=== PATIENT | female | born 1955 | race American Indian/Alaskan Native ===

== ENCOUNTER 2019-01-08 11:25 | Emergency (ER) | payer MEDICARE ==
[2019-01-08 11:25] VITALS: BMI 29.0
[2019-01-08 11:33] VITALS: PULSE 93; TEMP 99.3
[2019-01-08] MEDS: Albuterol-Ipratrop 3 mg / 0.5 (3 ml) UD IH SCH ×2 (12:23→12:59)
[2019-01-08] MEDS ORDERED: Albuterol-Ipratrop 3 mg / 0.5 (3 ml) UD ONE (12:26)
--- NOTE | 2019-01-08 12:26 | C.PDOC ---
History Of Present Illness 63 y/o female presents to the ER complaining of productive cough with clear phlegm which has been present for the 3 weeks. Patient states that she has chest pain with cough. Denies having fever,chills, SOB, nausea, vomiting, and abdominal pain. Time Seen by Provider: 01/08/19 11:34 Chief Complaint (Nursing): Cough, Cold, Congestion History Per: Patient History/Exam Limitations: no limitations Onset/Duration Of Symptoms: Days Current Symptoms Are (Timing): Still Present Severity: Moderate Past Medical History Reviewed: Historical Data, Nursing Documentation, Vital Signs Vital Signs: Last Vital Signs Temp 99.3 F 01/08/19 11:29 Pulse 93 H 01/08/19 11:29 Resp 22 01/08/19 11:29 BP 158/68 H 01/08/19 11:29 Pulse Ox 100 01/08/19 11:29 - Medical History PMH: HTN, Hypercholesterolemia Denies: Chronic Kidney Disease Surgical History: Endoscopy - [facility] Procedures ENDOSC POLYPECTOMY OF LG INTEST (11/22/14) Family History: States: No Known Family Hx - Social History Hx Alcohol Use: Yes Hx Substance Use: No - Immunization History Hx Influenza Vaccination: No Hx Pneumococcal Vaccination: No Review Of Systems Except As Marked, All Systems Reviewed And Found Negative. Constitutional: Negative for: Fever, Chills Cardiovascular: Positive for: Chest Pain (chest pain with cough) Respiratory: Positive for: Cough. Negative for: Shortness of Breath Gastrointestinal: Negative for: Nausea, Vomiting Physical Exam - Physical Exam Appears: Non-toxic, No Acute Distress Skin: Normal Color, Warm, Dry, No Rash Head: Atraumatic, Normacephalic Eye(s): bilateral: Normal Inspection, PERRL, EOMI Ear(s): Bilateral: Normal Nose: Normal Oral Mucosa: Moist Throat: Normal, No Erythema, No Exudate Neck: Normal ROM, Supple Chest: Symmetrical Cardiovascular: Rhythm Regular, No Friction Rub, No Murmur Respiratory: No Rales, Rhonchi (scattered rhonchi), No Wheezing Gastrointestinal/Abdominal: Bowel Sounds (active), Soft, No Tenderness Back: Normal Inspection, No CVA Tenderness Extremity: Normal ROM, No Tenderness, No Swelling Neurological/Psych: Oriented x3, Normal Speech Gait: Steady ED Course And Treatment O2 Sat by Pulse Oximetry: 100 (RA) Pulse Ox Interpretation: Normal Medical Decision Making Medical Decision Making: Plan: --CXR --Albuterol On re-exam, the patient reports improvement of symptoms. Lungs are CTA, heart is RRR, abdomen is soft, non-tender and the patient is tolerating PO well. Patient was instructed to follow up with the medical clinic within 2-3 days. Return if worsened. Disposition - Disposition Referrals: Lev Brian MD [Staff Provider] - Disposition: HOME/ ROUTINE Disposition Time: 13:25 Condition: GOOD Additional Instructions: follow up with the medical clinic within 2-3 days. Return if worsened. Prescriptions: Benzonatate 200 mg PO TID PRN #30 capsule PRN Reason: Cough Loratadine [Claritin] 10 mg PO DAILY #10 tab predniSONE [Prednisone] 20 mg PO BID #10 tab Instructions: Acute Bronchitis Forms: [facility] (Nepalese), Work Excuse - Clinical Impression Clinical Impression: Bronchitis - PA / [employer] / Resident Statement MD/DO has reviewed & agrees with the documentation as recorded. - Scribe Statement The provider has reviewed the documentation as recorded by the Lux Pringle Provider Attestation All medical record entries made by the Lux were at my direction and personally dictated by me. I have reviewed the chart and agree that the record accurately reflects my personal performance of the history, physical exam, medical decision making, and the department course for this patient. I have also personally directed, reviewed, and agree with the discharge instructions and disposition.
--- NOTE | 2019-01-08 12:54 | RAD ---
HISTORY: cough x 3 weeks COMPARISON: Chest x-ray performed 10/27/16 TECHNIQUE: Chest PA and lateral, 2 views FINDINGS: LUNGS: Biapical pleural thickening. No focal consolidation. Please note that chest x-ray has limited sensitivity for the detection of pulmonary masses. PLEURA: No significant pleural effusion identified. No definite pneumothorax . CARDIOVASCULAR: Heart size appears top normal. Atherosclerotic calcifications of the aortic knob. OSSEOUS STRUCTURES: Degenerative changes. VISUALIZED UPPER ABDOMEN: Mild elevation of the right hemidiaphragm. OTHER FINDINGS: None. IMPRESSION: No focal consolidation.
[2019-01-08 13:32] VITALS: BP 170/71; RESP 18; O2SAT 98
== END 2019-01-08 13:32 | disposition home or self-care (01) ==
LOC: C.ER 11:25
DX: J40 Bronchitis, not specified as acute or chronic (principal)